=== PATIENT | male | born 1970 | race Caucasian/White ===

== ENCOUNTER 2017-01-09 04:32 | Emergency (ER) | payer OTHER ==
[2017-01-09 05:10] VITALS: BMI 23.9
[2017-01-09 05:17] VITALS: BP 158/98; PULSE 70; RESP 18; TEMP 98.2; O2SAT 99
[2017-01-09] MEDS ORDERED: Mineral Oil Light Sterile 25 ml TOP STA (05:18)
[2017-01-09] MEDS ORDERED: Lidocaine 1% Inj (20ml) IJ STA (05:22)
--- NOTE | 2017-01-09 05:22 | ED PDOC ---
Addendum entered and electronically signed by Mabel Jett DO 01/09/17 05:47: Medical Decision Making Medical Decision Makincc Lidocaine placed in ear canal. moth extracted using alligator clamp under otoscope visualization. Original Note: Arrival/HPI <Mabel Jett - Last Filed: 01/09/17 05:46> <Willem Preston - Last Filed: 01/09/17 19:47> - General Chief Complaint: ENT Problem Time Seen by Provider: 01/09/17 04:36 - History of Present Illness Narrative History of Present Illness (Text): 01/09/17 05:19 46 y/o M presents to the ED w/ c/o ear pain. Pt states when he opened his front door, he noticed something flying in the air. The something then flew into his ear. Pt was unsuccessful in removing the foreign body which prompted him to come to the ED. (Mabel Jett) Past Medical History - Provider Review Nursing Documentation Reviewed: Yes - Psychiatric Hx Substance Use: No <Mabel Jett - Last Filed: 01/09/17 05:46> Family/Social History - Physician Review Nursing Documentation Reviewed: Yes Family/Social History: No Known Family HX Smoking Status: n Hx Alcohol Use: No Hx Substance Use: No <Mabel Jett - Last Filed: 01/09/17 05:46> Allergies/Home Meds <Mabel Jett - Last Filed: 01/09/17 05:46> <Willem Preston - Last Filed: 01/09/17 19:47> Allergies/Adverse Reactions: Allergies No Known Allergies Allergy (Verified 01/09/17 05:15) Home Medications: Home Meds Medication Instructions Recorded Confirmed Unobtainable 01/09/17 01/09/17 Review of Systems - Physician Review All systems were reviewed & negative as marked: Yes - Review of Systems Constitutional: absent: Fevers Respiratory: absent: SOB <Mabel Jett - Last Filed: 01/09/17 05:46> Physical Exam Vital Signs Reviewed: Yes Temperature: Afebrile Blood Pressure: Hypertensive Pulse: Regular Respiratory Rate: Normal Appearance: Positive for: Well-Appearing, Non-Toxic Pain Distress: None Mental Status: Positive for: Alert and Oriented X 3 - Systems Exam Head: Present: Atraumatic, Normocephalic Pupils: Present: PERRL Extroacular Muscles: Present: EOMI Ears: Present: NORMAL TM, Normal Canal, Other (bug in R ear canal ) Mouth: Present: Moist Mucous Membranes Neurological: Present: GCS=15, Speech Normal Skin: Present: Warm, Dry, Normal Color Psychiatric: Present: Alert, Oriented x 3, Normal Affect, Anxious <Mabel Jett - Last Filed: 01/09/17 05:46> Medical Decision Making <Mabel Jett - Last Filed: 01/09/17 05:46> <Willem Preston - Last Filed: 01/09/17 19:47> ED Course and Treatment: 01/09/17 05:36 46 y/o M w/ bug in R ear - lidocaine 1% (Mabel Jett) Pt seen and evaluated with resident. Pt presented for right ear pain after something flew in to his right ear earlier tonight. Aware and agree with HPI, clinical findings, plan, and management. Differential Diagnosis include but are not limited to: foreign body Plan: -- Foreign body extraction -- Reassess and disposition Progress Notes: Foreign body removal performed by myself ER attending. Foreign body visualized in right ear canal with otoscope. Lidocaine placed in ear and foreign body(moth ) removed with alligator forceps. Pt tolerated procedure well. (Willem Preston) - Medication Orders Current Medication Orders: Discontinued Medications Lidocaine HCl (Lidocaine 1% (20ml)) 20 ml IJ STAT STA Stop: 01/09/17 05:23 Last Admin: 01/09/17 05:24 Dose: 20 ml Comments: Given by resident - PA / DIRECTOR OF EDUCATION AND TRAINING / Resident Statement RIP has reviewed & agrees with the documentation as recorded. RIP has examined the patient and agrees with the treatment plan. <Willem Preston - Last Filed: 01/09/17 19:47> Disposition/Present on Arrival - Present on Arrival Any Indicators Present on Arrival: No History of DVT/PE: No History of Uncontrolled Diabetes: No Urinary Catheter: No History of Decub. Ulcer: No History Surgical Site Infection Following: None - Disposition Have Diagnosis and Disposition been Completed?: Yes Disposition Time: 05:43 <Mabel Jett - Last Filed: 01/09/17 05:46> <Willem Preston - Last Filed: 01/09/17 19:47> - Disposition Diagnosis: Foreign body in ear Disposition: HOME/ ROUTINE Condition: GOOD
== END 2017-01-09 05:50 | disposition home or self-care (01) ==
LOC: ED 04:32
DX: T16.1XXA Foreign body in right ear, initial encounter (principal); X58.XXXA Exposure to other specified factors, initial encounter; Y92.89 Other specified places as the place of occurrence of the external cause